=== PATIENT | female | born 1950 | race Caucasian/White ===

== ENCOUNTER → 2018-06-14 | Outpatient (CLI) | payer MEDICARE, OTHER | LOC: MAMMO 10:43 | DX: Z12.31 Encounter for screening mammogram for malignant neoplasm of breast (principal) ==

== ENCOUNTER → 2020-06-13 | Outpatient (CLI) | payer MEDICARE | LOC: RAD 08:51 | DX: R19.02 Left upper quadrant abdominal swelling, mass and lump (principal); R25.1 Tremor, unspecified; R51 Headache ==

== ENCOUNTER → 2020-06-13 | Outpatient (CLI) | payer MEDICARE | LOC: MAMMO 08:54 | DX: Z12.31 Encounter for screening mammogram for malignant neoplasm of breast (principal) ==